=== PATIENT | female | born 1995 ===

== ENCOUNTER 2024-04-29 14:51 | Outpatient (REF) | payer MEDICAID, SELFPAY ==
[2024-04-30 05:44] LABS: CT PCR NOT DETECTED (Not Detect.); NG PCR NOT DETECTED (Not Detect.)
[2024-04-30 11:09] LABS: Bacterial Vaginosis PCR POSITIVE (Negative); Candida Group PCR DETECTED (Not Detect); Candida glab krusei PCR NOT DETECTED (Not Detect); Trichomonas vaginalis PCR NOT DETECTED (Not Detect)
== END 2024-04-29 14:52 | disposition home or self-care (01) ==
LOC: HO.CHCLNP 14:51
PROVIDERS: Visit Provider Internal Medicine
DX: N39.0 Urinary tract infection, site not specified (principal); R31.9 Hematuria, unspecified
CPT/HCPCS: 0352U; 87086; 87491; 87591

== ENCOUNTER 2024-07-15 17:54 | Outpatient (REF) | payer MEDICAID, SELFPAY | END 2024-07-15 17:55 | disposition home or self-care (01) | LOC: HO.HHCLNP 17:54 | PROVIDERS: Visit Provider Family Medicine | DX: R39.9 Unspecified symptoms and signs involving the genitourinary system (principal) | CPT/HCPCS: 87086; 87088; 87186 ==